=== PATIENT | male | born 1995 | race Caucasian/White ===

== ENCOUNTER 2020-12-30 02:32 | Emergency (ER) | payer SELFPAY ==
[~2020-12-30] VITALS: Ht 175.3 cm; Wt 91.0 kg
[2020-12-30] MEDS ORDERED: IBUPROFEN 600MG TABLET PO ONE (03:15)
[2020-12-30 03:47] VITALS: BP 144/88
== END 2020-12-30 03:42 | disposition home or self-care (01) ==
LOC: ER 02:59
DX: M25.561 Pain in right knee (principal); Z59.0 Homelessness
CPT/HCPCS: 99283